=== PATIENT | male | born 2000 | race Caucasian/White ===

== ENCOUNTER 2020-01-30 21:56 | Emergency (ER) | payer BC ==
[~2020-01-30] VITALS: Ht 177.8 cm; Wt 82.5 kg
[2020-01-30 22:01] VITALS: BP 135/83
--- NOTE | 2020-01-30 22:15 | NUR ---
PT TO ED WITH INTERMITTENT BLOOD IN STOOL [id number]. PT DENIES N/V, FATIGUE OR ANY OTHER C/O AT THIS TIME. PT REPORTS BLOOD IS RED, BUT NOT BRIGHT RED. REPORTS SCANT TO LARGE AMOUNTS OF BLOOD, MOST RECENT BM TODAY, LARGE BLOOD VOLUME PER PT. DENIES ANY ABDOMINAL PAIN. PT CONNECTED TO MONITORING, CALL LIGHT WITHIN REACH, ALL SAFETY MEASURES IN PLACE. FAMILY AT BS FOR SUPPORT.
[2020-01-30] MEDS ORDERED: SODIUM CHLORIDE FLUSH 10ML SYR IVF ONE (22:30)
[2020-01-30 22:42] LABS: BASOPHILS # (AUTO) 0.05 x10^3/uL (0-0.1); BASOPHILS % (AUTO) 1 % (0-1); EOSINOPHILS # (AUTO) 0.05 x10^3/uL (0-0.4); EOSINOPHILS % (AUTO) 1 % (1-7); LYMPHOCYTES # (AUTO) 2.64 x10^3/uL (1-3.4); LYMPHOCYTES % (AUTO) 41 % (22-44); MD NO; MEAN CORPUSCULAR HEMOGLOBIN 30.5 pg (27.5-34.5); MEAN CORPUSCULAR HGB CONC 34.2 g/dL (33.2-36.2); MEAN CORPUSCULAR VOLUME 89.1 fL (81-97); MEAN PLATELET VOLUME 8.6 fL (7.4-10.4); MONOCYTES # (AUTO) 0.53 x10^3/uL (0.2-0.8); MONOCYTES % (AUTO) 8 % (2-9); NEUTROPHILS # (AUTO) 3.13 x10^3/uL (1.8-6.8); NEUTROPHILS % (AUTO) 49 % (42-75); PLATELET COUNT 243 x10^3/uL (130-400); RED BLOOD COUNT 5.23 x10^6/uL (4.38-5.82); RED CELL DISTRIBUTION WIDTH 13.1 % (9.4-14.8)
== END 2020-01-30 23:46 | disposition home or self-care (01) ==
LOC: ED 22:26
DX: K64.8 Other hemorrhoids (principal); R19.7 Diarrhea, unspecified
CPT/HCPCS: 36415; 85025; 99283